=== PATIENT | female | born 1995 | race Caucasian/White ===

== ENCOUNTER 2021-07-23 06:34 | Emergency (ER) | payer BC, OTHER ==
[2021-07-23 07:03] VITALS: TEMP 97.9; BMI 33.4
[2021-07-23] MEDS ORDERED: predniSONE 20 MG TABLET (UD) PO ONE (07:39)
[2021-07-23] MEDS ORDERED: predniSONE 20 MG TABLET (UD) ONE (07:48)
[2021-07-23] MEDS: ALBUTEROL SO4 2.5/IPRATROPIUM 0.5 INH SOL 3 ML VIAL.NEB. NEB SCH ×4 (07:51→09:10)
[2021-07-23] MEDS ORDERED: ALBUTEROL SO4 2.5/IPRATROPIUM 0.5 INH SOL 3 ML VIAL.NEB. NEB ONE (08:16)
[2021-07-23] MEDS ORDERED: MAGNESIUM SULF 50% (8.12 MEQ/2 ML-1 GM VIAL) IVPB ONE ×2 (08:22)
[2021-07-23] MEDS ORDERED: MAGNESIUM SULFATE IN WATER 2 GM/50 ML IVPB IVPB ONE (08:27)
[2021-07-23] MEDS ORDERED: ALBUTEROL SO4 0.083% IH SOL 2.5 MG/3 ML VIAL.NEB. NEB ONE ×2 (09:53→10:09)
[2021-07-23 10:07] VITALS: BP 133/84; PULSE 88
[2021-07-24 19:06] LABS: SARS-CoV-2 NAA Not Detected (Not Detected)
== END 2021-07-23 11:07 | disposition home or self-care (01) ==
LOC: JER 06:34
PROC: 3E033NZ Introduction of Analgesics, Hypnotics, Sedatives into Peripheral Vein, Percutaneous Approach (ICD-10-PCS; principal; 2021-07-23)
PROC: 3E0F7GC Introduction of Other Therapeutic Substance into Respiratory Tract, Via Natural or Artificial Opening (ICD-10-PCS; 2021-07-23)
PROC: 3E033GC Introduction of Other Therapeutic Substance into Peripheral Vein, Percutaneous Approach (ICD-10-PCS; 2021-07-23)
PROC: 3E033GC Introduction of Other Therapeutic Substance into Peripheral Vein, Percutaneous Approach (ICD-10-PCS; 2021-07-23)
DX: J45.41 Moderate persistent asthma with (acute) exacerbation (principal)
CPT/HCPCS: 71045-TC-FY; 87804; 99285-25; C9803; U0003; U0005

== ENCOUNTER 2021-07-23 22:20 | Inpatient (IN) | payer BC ==
[2021-07-23] MEDS ORDERED: ALBUTEROL SO4 2.5/IPRATROPIUM 0.5 INH SOL 3 ML VIAL.NEB. NEB ONE (22:31)
[2021-07-23] MEDS ORDERED: methylPREDNISolone NA SUCC 125 MG/2 ML VIAL IVPB ONE (22:32)
[2021-07-23] MEDS ORDERED: methylPREDNISolone NA SUCC 125 MG/2 ML VIAL ONE (22:53)
[2021-07-23] MEDS ORDERED: MAGNESIUM SULFATE IN WATER 2 GM/50 ML IVPB IVPB ONE (22:53)
[2021-07-23 23:21] LABS: HEMATOCRIT 41.3 % (32.4-45.2); HEMOGLOBIN 13.5 GM/dL (10.7-15.3); MCHC 32.7 g/dl (32.0-36.0); MEAN CELL VOLUME 79.6 fl (80-96); MEAN PLT VOLUME 8.2 fl (7.5-11.1); PLATELET COUNT 389 10^3/uL (134-434); RBC 5.18 M/mm3 (3.60-5.2); RDW 14.8 % (11.6-15.6); WHITE BLOOD COUNT 17.4 K/mm3 (4.0-10.0)
[2021-07-23 23:25] LABS: ALBUMIN 4.4 g/dl (3.4-5.0); BLOOD UREA NITROGEN 9.8 mg/dL (7-18); MAGNESIUM 2.4 mg/dL (1.8-2.4)
[2021-07-23 23:28] LABS: CREATININE 0.8 mg/dL (0.55-1.3)
[2021-07-23 23:30] LABS: BILIRUBIN,TOTAL 0.2 mg/dL (0.2-1); TOT PROT 8.9 g/dl (6.4-8.2)
[2021-07-24 00:06] LABS: ANISOCYTOSIS 0; MACROCYTOSIS 0; PLATELET ESTIMATE NORMAL
[2021-07-24] MEDS ORDERED: BUDESONIDE/FORMETEROL FUMARATE 80/4.5 mcg INHALER IH ONE (01:03)
[2021-07-24] MEDS: BUDESONIDE/FORMETEROL FUMARATE 80/4.5 mcg INHALER IH SCH ×2 (02:15→10:15)
[2021-07-24] MEDS ORDERED: OXYMETAZOLINE 0.05% NASAL SOLUTION 15 ML BOTTLE NS ONE (05:41)
[2021-07-24 08:08] LABS: CALCIUM 9.4 mg/dL (8.5-10.1)
[2021-07-24 08:09] LABS: BLOOD UREA NITROGEN 8.4 mg/dL (7-18); MAGNESIUM 2.6 mg/dL (1.8-2.4)
[2021-07-24 08:11] LABS: PHOSPHOROUS 3.7 mg/dL (2.5-4.9)
[2021-07-24 08:12] LABS: CREATININE 0.8 mg/dL (0.55-1.3)
[2021-07-24 08:15] LABS: HEMATOCRIT 38.7 % (32.4-45.2); HEMOGLOBIN 12.8 GM/dL (10.7-15.3); MCH 26.6 pg (25.7-33.7); MCHC 33.2 g/dl (32.0-36.0); MEAN CELL VOLUME 80.4 fl (80-96); MEAN PLT VOLUME 8.3 fl (7.5-11.1); PLATELET COUNT 370 10^3/uL (134-434); RBC 4.82 M/mm3 (3.60-5.2); RDW 14.6 % (11.6-15.6); WHITE BLOOD COUNT 15.7 K/mm3 (4.0-10.0)
[2021-07-24] MEDS: ENOXAPARIN NA (PORCINE) 40 MG/0.4 ML DISP.SYRIN SQ SCH (10:00)
[2021-07-24] MEDS ORDERED: predniSONE 20 MG TABLET (UD) PO SCH (10:00)
[2021-07-24] MEDS: ALBUTEROL SO4 2.5/IPRATROPIUM 0.5 INH SOL 3 ML VIAL.NEB. NEB PRN ×2 (10:00→12:24)
[2021-07-24] MEDS ORDERED: ENOXAPARIN NA (PORCINE) 40 MG/0.4 ML DISP.SYRIN SQ ONE (10:01)
[2021-07-24] MEDS ORDERED: predniSONE 20 MG TABLET (UD) ONE (10:01)
[2021-07-24] MEDS ORDERED: ALBUTEROL SO4 2.5/IPRATROPIUM 0.5 INH SOL 3 ML VIAL.NEB. NEB ONE (10:02)
[2021-07-24 10:58] LABS: ANISOCYTOSIS 2+; MACROCYTOSIS 0; OVALOCYTE 1+; PLATELET ESTIMATE NORMAL
[2021-07-24] MEDS ORDERED: methylPREDNISolone NA SUCC 40 MG/1 ML VIAL IVPB SCH (11:30)
[2021-07-24 12:27] LABS: ARTERIAL BLD GAS O2 SATURATION 91.1 % (95-98); ARTERIAL BLOOD GAS PO2 55.4 mmHg (80-100)
[2021-07-24 12:34] LABS: ALLENS TEST POSITIVE
[2021-07-24] MEDS: methylPREDNISolone NA SUCC 40 MG/1 ML VIAL IVPB SCH ×2 (15:07→21:08)
[2021-07-24] MEDS: PANTOPRAZOLE 20 MG TABLET PO SCH (15:07)
[2021-07-24] MEDS: ALBUTEROL SO4 2.5/IPRATROPIUM 0.5 INH SOL 3 ML VIAL.NEB. NEB SCH ×2 (15:24→20:10)
[2021-07-24] MEDS ORDERED: FLU VACC QS2021-22(6MOS UP)/PF 60 MCG/0.5 ML SYRINGE IM ONE (17:00)
[2021-07-24] MEDS: BUDESONIDE/FORMETEROL FUMARATE 160/4.5 mcg INHALER IH SCH (21:08)
[2021-07-25] MEDS: methylPREDNISolone NA SUCC 40 MG/1 ML VIAL IVPB SCH ×3 (03:52→17:23)
[2021-07-25] MEDS: ALBUTEROL SO4 0.083% IH SOL 2.5 MG/3 ML VIAL.NEB. NEB PRN ×2 (04:08→10:23)
[2021-07-25] MEDS: ALBUTEROL SO4 2.5/IPRATROPIUM 0.5 INH SOL 3 ML VIAL.NEB. NEB SCH ×4 (07:46→20:14)
[2021-07-25] MEDS: PANTOPRAZOLE 20 MG TABLET PO SCH (09:33)
[2021-07-25] MEDS: ENOXAPARIN NA (PORCINE) 40 MG/0.4 ML DISP.SYRIN SQ SCH ×2 (09:33→09:47)
[2021-07-25] MEDS: BUDESONIDE/FORMETEROL FUMARATE 160/4.5 mcg INHALER IH SCH ×2 (09:34→21:35)
[2021-07-25 09:49] LABS: HEMATOCRIT 39.7 % (32.4-45.2); HEMOGLOBIN 12.8 GM/dL (10.7-15.3); MCHC 32.3 g/dl (32.0-36.0); MEAN CELL VOLUME 80.5 fl (80-96); MEAN PLT VOLUME 8.5 fl (7.5-11.1); PLATELET COUNT 403 10^3/uL (134-434); RBC 4.94 M/mm3 (3.60-5.2); RDW 14.9 % (11.6-15.6); WHITE BLOOD COUNT 17.9 K/mm3 (4.0-10.0)
[2021-07-25 10:17] LABS: CALCIUM 9.6 mg/dL (8.5-10.1)
[2021-07-25 10:18] LABS: BLOOD UREA NITROGEN 12.5 mg/dL (7-18)
[2021-07-25 10:21] LABS: CREATININE 0.6 mg/dL (0.55-1.3)
[2021-07-25 10:23] LABS: BILIRUBIN,TOTAL 0.3 mg/dL (0.2-1); TOT PROT 7.9 g/dl (6.4-8.2)
[2021-07-25 10:51] LABS: ANISOCYTOSIS 2+; MACROCYTOSIS 0; PLATELET ESTIMATE NORMAL
[2021-07-26] MEDS: methylPREDNISolone NA SUCC 40 MG/1 ML VIAL IVPB SCH ×2 (02:13→09:28)
[2021-07-26] MEDS: ALBUTEROL SO4 0.083% IH SOL 2.5 MG/3 ML VIAL.NEB. NEB PRN (02:55)
[2021-07-26 08:29] LABS: HEMATOCRIT 39.4 % (32.4-45.2); HEMOGLOBIN 12.8 GM/dL (10.7-15.3); LYMPH % 8.8 % (8-40); MCHC 32.4 g/dl (32.0-36.0); MEAN CELL VOLUME 80.4 fl (80-96); MEAN PLT VOLUME 8.2 fl (7.5-11.1); MONO % 4.7 % (3.8-10.2); NEUT % 86.5 % (42.8-82.8); PLATELET COUNT 402 10^3/uL (134-434); WHITE BLOOD COUNT 15.1 K/mm3 (4.0-10.0)
[2021-07-26 08:46] LABS: CALCIUM 9.4 mg/dL (8.5-10.1)
[2021-07-26 08:47] LABS: ALBUMIN 3.6 g/dl (3.4-5.0)
[2021-07-26 08:49] LABS: BLOOD UREA NITROGEN 14.8 mg/dL (7-18); MAGNESIUM 2.4 mg/dL (1.8-2.4)
[2021-07-26 08:50] LABS: CREATININE 0.7 mg/dL (0.55-1.3)
[2021-07-26] MEDS: ALBUTEROL SO4 2.5/IPRATROPIUM 0.5 INH SOL 3 ML VIAL.NEB. NEB SCH ×3 (08:50→16:30)
[2021-07-26 08:54] LABS: BILIRUBIN,TOTAL 0.3 mg/dL (0.2-1); TOT PROT 7.5 g/dl (6.4-8.2)
[2021-07-26] MEDS: ENOXAPARIN NA (PORCINE) 40 MG/0.4 ML DISP.SYRIN SQ SCH (09:27)
[2021-07-26] MEDS: BUDESONIDE/FORMETEROL FUMARATE 160/4.5 mcg INHALER IH SCH (09:28)
[2021-07-26] MEDS: PANTOPRAZOLE 20 MG TABLET PO SCH (09:28)
[2021-07-26 14:45] VITALS: TEMP 98.1
[2021-07-26 15:32] VITALS: BMI 34.3
[2021-07-26 17:34] VITALS: BP 120/64; PULSE 77
[2021-07-26] MEDS ORDERED: methylPREDNISolone NA SUCC 40 MG/1 ML VIAL IVPB SCH (22:00)
== END 2021-07-26 18:55 | disposition home or self-care (01) | DRG 202 ==
LOC: JER 22:20 → JERBED 07-24 00:12 → J6S 07-24 10:44 → J7W 07-24 10:56
PROVIDERS: ADMIT Hospitalist; ATTEND Nurse Practitioner Acute Care
DX: J45.901 Unspecified asthma with (acute) exacerbation (principal); J96.01 Acute respiratory failure with hypoxia; D72.829 Elevated white blood cell count, unspecified; F41.9 Anxiety disorder, unspecified; R00.0 Tachycardia, unspecified
CPT/HCPCS: 36415; 36600; 71045-TC-FY; 80048; 80053; 82803; 83735; 84100; 84703; 85025; 93005; 93010; 94150; 94640; 94761; 99285-25; C9803; U0003; U0005

== ENCOUNTER 2022-08-30 15:55 | Emergency (ER) | payer BC ==
[2022-08-30 16:15] VITALS: BP 134/84; PULSE 97; RESP 20; TEMP 98.7; BMI 36.5
[2022-08-30] MEDS ORDERED: predniSONE 20 MG TABLET (UD) PO ONE (16:20)
[2022-08-30] MEDS ORDERED: predniSONE 20 MG TABLET (UD) ONE (16:27)
[2022-08-30] MEDS ORDERED: ALBUTEROL SO4 2.5/IPRATROPIUM 0.5 INH SOL 3 ML VIAL.NEB. NEB ONE (16:28)
[2022-08-30] MEDS ORDERED: ALBUTEROL SO4 2.5/IPRATROPIUM 0.5 INH SOL 3 ML VIAL.NEB. NEB SCH (16:30)
== END 2022-08-30 17:31 | disposition home or self-care (01) ==
LOC: FER 15:55
PROC: 3E0F7GC Introduction of Other Therapeutic Substance into Respiratory Tract, Via Natural or Artificial Opening (ICD-10-PCS; principal; 2022-08-30)
DX: J45.901 Unspecified asthma with (acute) exacerbation (principal); J06.9 Acute upper respiratory infection, unspecified
CPT/HCPCS: 0241U-QW; 71046-TC-FY; 87651; 99284-25

== ENCOUNTER 2024-05-12 19:49 | Emergency (ER) | payer BC, OTHER ==
[2024-05-12 19:58] VITALS: BP 109/84; TEMP 98.6; BMI 33.4
[2024-05-12] MEDS ORDERED: ALBUTEROL SO4 2.5/IPRATROPIUM 0.5 INH SOL 3 ML VIAL.NEB. NEB ONE ×2 (20:19→21:57)
[2024-05-12] MEDS ORDERED: ACETAMINOPHEN 500 MG TABLET (FP) ONE (20:25)
[2024-05-12] MEDS ORDERED: predniSONE 20 MG TABLET (UD) ONE (20:27)
[2024-05-12] MEDS: ALBUTEROL SO4 2.5/IPRATROPIUM 0.5 INH SOL 3 ML VIAL.NEB. NEB SCH (20:27)
[2024-05-12] MEDS: ACETAMINOPHEN 500 MG TABLET (FP) PO ONE (20:39)
[2024-05-12] MEDS: predniSONE 20 MG TABLET (UD) PO ONE (20:40)
[2024-05-12 21:48] LABS: THROAT:GRP A STREP NOT DETECTED (NOTDETECTED)
[2024-05-12 22:01] VITALS: PULSE 118; RESP 20
== END 2024-05-12 22:02 | disposition home or self-care (01) ==
LOC: JER 19:49
PROC: 3E0F7GC Introduction of Other Therapeutic Substance into Respiratory Tract, Via Natural or Artificial Opening (ICD-10-PCS; principal; 2024-05-12)
DX: R06.02 Shortness of breath (principal); J45.901 Unspecified asthma with (acute) exacerbation; R07.89 Other chest pain; R51.9 Headache, unspecified; R07.0 Pain in throat; Z20.822 Contact with and (suspected) exposure to COVID-19
CPT/HCPCS: 0241U-QW; 87651; 99283-25

== ENCOUNTER 2024-11-27 04:12 | Inpatient (IN) | payer OTHER ==
[2024-11-27] MEDS ORDERED: MAGNESIUM SULFATE IN WATER 2 GM/50 ML IVPB IVPB ONE (04:29)
[2024-11-27] MEDS ORDERED: methylPREDNISolone NA SUCC 125 MG/2 ML VIAL ONE (04:29)
[2024-11-27] MEDS: ALBUTEROL SO4 2.5/IPRATROPIUM 0.5 INH SOL 3 ML VIAL.NEB. NEB SCH (04:33)
[2024-11-27] MEDS: MAGNESIUM SULF 50% (8.12 MEQ/2 ML-1 GM VIAL) IVPB ONE (04:59)
[2024-11-27] MEDS: methylPREDNISolone NA SUCC 125 MG/2 ML VIAL IVPUSH ONE (04:59)
[2024-11-27 05:00] LABS: ABSOLUTE IMMATURE GRANULOCYTES 0.09 x10^3/uL (0.0-0.031); BASOPHILS # 0.07 x10^3/uL (0.01-0.08); EOSINOPHIL % 0.3 % (0.7-5.8); HEMOGLOBIN 12.9 g/dL (11.2-15.7); RDW 14.7 % (12.1-16.5)
[2024-11-27 05:01] LABS: EOSINOPHILS # 0.06 x10^3/uL (0.04-0.36); HEMATOCRIT 39.6 % (34.1-44.9); MCHC 32.6 g/dl (32.2-35.5); MEAN CELL VOLUME 81.6 fl (79.4-94.8); MEAN PLT VOLUME 9.7 fl (9.4-12.3); MONOCYTE % 5.6 % (4.7-12.5); PLATELET COUNT 405 x10^3/uL (182-369)
[2024-11-27 05:17] LABS: POTASSIUM 3.5 mmol/L (3.5-5.1)
[2024-11-27 05:19] LABS: ALBUMIN 3.9 g/dl (3.4-5.0); CALCIUM 9.4 mg/dL (8.5-10.1)
[2024-11-27 05:20] LABS: BLOOD UREA NITROGEN 12.9 mg/dL (7-18)
[2024-11-27 05:23] LABS: CREATININE 0.6 mg/dL (0.55-1.3)
[2024-11-27 05:24] LABS: BILIRUBIN,TOTAL 0.2 mg/dL (0.2-1); TOT PROT 7.4 g/dl (6.4-8.2)
[2024-11-27 06:04] LABS: VENOUS BASE EXCESS -2.7 mmol/L (-2-2); VENOUS O2 SATURATION 84.4 % (70-80); VENOUS PCO2 36.5 mmHg (38-52); VENOUS PH 7.389 (7.310-7.410)
[2024-11-27] MEDS ORDERED: CEFTRIAXONE 1 G/50 ML PREMIX 50 ML IVPB ONE (06:08)
[2024-11-27] MEDS ORDERED: ACETAMINOPHEN 500 MG TABLET (FP) PO PRN (06:08)
[2024-11-27] MEDS: CEFTRIAXONE 1 GM in DEXTROSE 5%-WATER - 100 ML IVPB ONE (06:15)
[2024-11-27] MEDS ORDERED: AZITHROMYCIN IVPB 500 MG/250 ML BAG IVPB ONE (06:34)
[2024-11-27] MEDS: AZITHROMYCIN IVPB 500 MG in DEXTROSE 5%-WATER - 250 ML IVPB ONE (06:40)
[2024-11-27] MEDS: ALBUTEROL SO4 0.083% IH SOL 2.5 MG/3 ML VIAL.NEB. NEB SCH (07:25)
[2024-11-27] MEDS ORDERED: LORATADINE 10 MG TABLET PO PRN (07:32)
[2024-11-27] MEDS: ACETAMINOPHEN 1000 MG/100 ML BAG IVPB PRN (10:25)
[2024-11-27] MEDS: PANTOPRAZOLE 40 MG TABLET PO SCH (10:25)
[2024-11-27 11:06] VITALS: BMI 29.9
[2024-11-27] MEDS: guaiFENesin/D-METHORPHAN TAB.ER.12H PO SCH (13:21)
[2024-11-27] MEDS: methylPREDNISolone NA SUCC 40 MG/1 ML VIAL IVPUSH SCH (13:23)
[2024-11-27] MEDS: BUDESONIDE/FORMETEROL FUMARATE 160/4.5 mcg INHALER IH SCH (13:23)
[2024-11-27] MEDS: PIPERACILLIN/TAZOB 3.375 GM 50 ML IVPB SCH (17:10)
[2024-11-27] MEDS: MONTELUKAST NA 10 MG TABLET PO SCH (21:28)
[2024-11-28 09:11] LABS: ABSOLUTE IMMATURE GRANULOCYTES 0.12 x10^3/uL (0.0-0.031); BASOPHILS # 0.02 x10^3/uL (0.01-0.08); HEMATOCRIT 42.4 % (34.1-44.9); HEMOGLOBIN 13.5 g/dL (11.2-15.7); MCHC 31.8 g/dl (32.2-35.5); MEAN CELL VOLUME 83.1 fl (79.4-94.8); MONOCYTE # 1.51 x10^3/uL (0.24-0.86); MONOCYTE % 7.6 % (4.7-12.5); PLATELET COUNT 474 x10^3/uL (182-369); RDW 14.7 % (12.1-16.5)
[2024-11-28 09:43] LABS: POTASSIUM 4.5 mmol/L (3.5-5.1)
[2024-11-28 09:45] LABS: CALCIUM 10.2 mg/dL (8.5-10.1)
[2024-11-28 09:46] LABS: BLOOD UREA NITROGEN 10.5 mg/dL (7-18)
[2024-11-28 09:48] LABS: CREATININE 0.6 mg/dL (0.55-1.3)
[2024-11-28] MEDS ORDERED: CEFTRIAXONE 1 G/50 ML PREMIX 50 ML IVPB SCH (10:00)
[2024-11-28] MEDS ORDERED: AZITHROMYCIN IVPB 500 MG/250 ML BAG IVPB SCH (10:00)
[2024-11-29 08:30] LABS: ABSOLUTE IMMATURE GRANULOCYTES 0.09 x10^3/uL (0.0-0.031); BASOPHILS # 0.02 x10^3/uL (0.01-0.08); HEMATOCRIT 42.5 % (34.1-44.9); HEMOGLOBIN 13.7 g/dL (11.2-15.7); MCHC 32.2 g/dl (32.2-35.5); MEAN CELL VOLUME 82.4 fl (79.4-94.8); MONOCYTE % 6.3 % (4.7-12.5); PLATELET COUNT 500 x10^3/uL (182-369); RDW 14.6 % (12.1-16.5)
[2024-11-29 08:46] LABS: POTASSIUM 4.4 mmol/L (3.5-5.1)
[2024-11-29 08:48] LABS: ALBUMIN 4.1 g/dl (3.4-5.0)
[2024-11-29 08:49] LABS: BLOOD UREA NITROGEN 16.2 mg/dL (7-18); CALCIUM 10.5 mg/dL (8.5-10.1)
[2024-11-29 08:52] LABS: CREATININE 0.7 mg/dL (0.55-1.3)
[2024-11-29 08:53] LABS: BILIRUBIN,TOTAL 0.3 mg/dL (0.2-1); TOT PROT 8.2 g/dl (6.4-8.2)
[2024-11-29] MEDS ORDERED: guaiFENesin 600 MG TABLET.ER (FP) PO SCH (22:00)
[2024-11-30] MEDS: methylPREDNISolone NA SUCC 40 MG/1 ML VIAL IVPUSH SCH (09:10)
[2024-11-30 10:06] VITALS: RESP 20; TEMP 97.9
[2024-11-30 14:27] VITALS: BP 113/74; PULSE 76
== END 2024-11-30 17:31 | disposition home or self-care (01) | DRG 139 ==
LOC: JER 04:12 → JERBED 05:58 → J7W 08:08 → OBSVTOIN 09:42 → J7W 21:10
PROVIDERS: ADMIT Family Medicine; ATTEND Family Medicine
DX: J18.9 Pneumonia, unspecified organism (principal); J45.901 Unspecified asthma with (acute) exacerbation; E28.2 Polycystic ovarian syndrome; J93.83 Other pneumothorax
CPT/HCPCS: 0241U-QW; 36415; 71045-TC-FY; 71046-TC-FY; 71250-TC; 80048; 80053; 82803; 83735; 85025; 87651; 93005; 93010; 94640; 99285-25; G0378; J0131; J1100